=== PATIENT | male | born 1995 | race Caucasian/White ===

== ENCOUNTER → 2017-03-16 | Outpatient (CLI) | payer OTHER | LOC: LAB 09:07 | PROVIDERS: ATTEND Family Medicine | DX: Z02.9 Encounter for administrative examinations, unspecified (principal) ==

== ENCOUNTER → 2017-03-17 | Outpatient (CLI) | payer OTHER ==
[2017-03-17 08:22] LABS: ALANINE AMINOTRANSFERASE 24 U/L (12-78); ALBUMIN 4.2 g/dL (3.4-5.0); ANION GAP 5 mmol/L (5-15); CALCIUM 8.4 mg/dL (8.5-10.1); CHLORIDE 106 mmol/L (98-107); CHOLESTEROL, TOTAL 166 mg/dL (140-239); CREATININE 0.97 mg/dL (0.7-1.3)
[2017-03-17 08:33] LABS: ALKALINE PHOSPHATASE 83 U/L (45-117); BILIRUBIN,TOTAL 0.6 mg/dL (0.2-1.0); CHOL/HDL RATIO 3.1; HDL CHOL % 32 % (26-37); HDL CHOLESTEROL (DIRECT) 53 mg/dL (40-60); LDL CHOLESTEROL,CALCULATED 97 mg/dL (54-169); LDL/HDL RATIO 1.8 (0.5-3.0); TOTAL PROTEIN 7.7 g/dL (6.4-8.2); TRIGLYCERIDES 80 mg/dL (50-200); VLDL CHOLESTEROL 16 mg/dL (0-25)
== END | disposition home or self-care (01) ==
LOC: LAB 08:02
PROVIDERS: ATTEND Family Medicine
DX: Z00.01 Encounter for general adult medical examination with abnormal findings (principal); F41.9 Anxiety disorder, unspecified
CPT/HCPCS: 36415; 80053; 80061; 84443

== ENCOUNTER → 2017-08-01 | Outpatient (CLI) | payer OTHER | END | disposition home or self-care (01) | LOC: LAB 11:37 | PROVIDERS: ATTEND Family Medicine | DX: Z00.00 Encounter for general adult medical examination without abnormal findings (principal) | CPT/HCPCS: 36415; 86480; 86735; 86762; 86765; 86787 ==

== ENCOUNTER → 2017-08-29 | Outpatient (CLI) | payer OTHER ==
[~2017-08-29] MED LIST: None per pt
== END ==
LOC: STAR 08:32
PROVIDERS: ATTEND Orthopaedic Surgery
DX: Z02.9 Encounter for administrative examinations, unspecified (principal)

== ENCOUNTER 2017-09-07 08:57 | Day surgery (SDC) | payer BC, OTHER ==
[~2017-09-07] VITALS: Ht 175.3 cm; Wt 73.4 kg
[~2017-09-07 08:57] MED LIST changes: +BUPIVACAINE/PF-EPI 0.5% 1:200K ONE; +EPINEPHRINE 1 MG/ML, 1ML ONE; +LIDOCAINE-MPF 1%, 5ML ONE
[2017-09-07 09:31] VITALS: BP 118/79
[2017-09-07] MEDS ORDERED: LACTATED RINGERS 1,000 ML IV SCH (09:41)
[2017-09-07] MEDS ORDERED: GABAPENTIN 300 MG CAPSULE PO ONE (10:00)
[2017-09-07] MEDS ORDERED: ACETAMINOPHEN 500 MG TABLET PO ONE (10:00)
[2017-09-07] MEDS ORDERED: MIDAZOLAM 1 MG/ML, 2ML ONE (10:41)
[2017-09-07] MEDS ORDERED: FENTANYL PF 100 MCG/2ML ONE ×2 (10:41)
[2017-09-07] MEDS ORDERED: DEXAMETHASONE 4 MG/ML, 5ML ONE (11:04)
[2017-09-07] MEDS ORDERED: BUPIVACAINE/PF 0.5% ONE (11:40)
[2017-09-07] MEDS ORDERED: PROPOFOL 10 MG/ML, 20ML ONE (11:41)
[2017-09-07] MEDS ORDERED: CEFAZOLIN 1,000 MG ONE (11:41)
[2017-09-07] MEDS ORDERED: LIDOCAINE GEL 2%, 5ML ONE (11:41)
[2017-09-07] MEDS ORDERED: DEXAMETHASONE 4 MG/ML, 1ML ONE (11:41)
[2017-09-07] MEDS ORDERED: ONDANSETRON 2MG/ML, 2ML ONE (11:41)
[2017-09-07] MEDS ORDERED: SUCCINYLCHOLINE 20 MG/ML, 10ML ONE (11:41)
[2017-09-07] MEDS ORDERED: KETOROLAC 30 MG/1 ML IV PRN (12:00)
[2017-09-07] MEDS ORDERED: MIDAZOLAM 1 MG/ML, 2ML IV PRN (12:00)
[2017-09-07] MEDS ORDERED: MEPERIDINE/PF 25MG/0.5ML IVPush PRN (12:00)
[2017-09-07] MEDS ORDERED: EPHEDRINE 50 MG/ML, 1ML IM PRN (12:00)
[2017-09-07] MEDS ORDERED: DIPHENHYDRAMINE 50 MG/ML, 1ML IVPush PRN (12:00)
[2017-09-07] MEDS ORDERED: OXYcodone 5 MG/5 ML ORAL.SOL UDC PO PRN (12:00)
[2017-09-07] MEDS ORDERED: PROMETHAZINE 25 MG SUPP PR PRN (12:00)
[2017-09-07] MEDS ORDERED: FENTANYL PF 100 MCG/2ML IV PRN (12:00)
[2017-09-07] MEDS ORDERED: SCOPOLAMINE PATCH, 1.5MG PATCH.TD72 TD PRN (12:00)
[2017-09-07] MEDS ORDERED: PROMETHAZINE 25 MG/ML, 1ML IV PRN (12:00)
[2017-09-07] MEDS ORDERED: ALBUTEROL/IPRATROPIUM 2.5MG/0.5MG, 3 ML NPPB PRN (12:00)
== END 2017-09-07 14:20 ==
LOC: OUT 08:57 → MERGE 11:30 → OUT 14:20
PROVIDERS: ATTEND Orthopaedic Surgery
DX: S83.512A Sprain of anterior cruciate ligament of left knee, initial encounter (principal); S43.432A Superior glenoid labrum lesion of left shoulder, initial encounter; M65.812 Other synovitis and tenosynovitis, left shoulder; M25.312 Other instability, left shoulder; X58.XXXA Exposure to other specified factors, initial encounter; Y93.89 Activity, other specified; Y92.89 Other specified places as the place of occurrence of the external cause; Y99.8 Other external cause status
CPT/HCPCS: 29807; 64415; C1713; J0330; J0690; J1100; J2250; J2405; J2704; J3010; J3490; J7120; J0171